=== PATIENT | male | born 1965 | race African-American/Black ===

== ENCOUNTER 2019-02-10 15:31 | Inpatient (IN) | payer OTHER ==
[~2019-02-10] VITALS: Ht 190.5 cm; Wt 121.2 kg
--- NOTE | ~2019-02-10 | EMS ---
[address] [address] EMS Patient Care Report Name: VERNON GARCIA Room #: REG MENDY Jackson#: [id number] Admission: 02/10/19 Attend Phys: Discharge: Date of : 69 Report #: [id number] THIS REPORT FOR: //name// Report Transmitted: 02/10/2019 15:31 EMS Care Summary [place], [place]/[facility] Incident [id number] @ 02/10/2019 14:55 Incident Location [address] [place] [address] [place] [address] Patient VERNON GARCIA Male, 53 Years 1965 Patient Address [address] [place] [address] [place] [address] Patient History Chronic Obstructive Pulmonary Disease (COPD),Diabetes,Hypertension,Seizures,Stroke/CVA,Depression, Patient Allergies Penicillin allergy,Sulfa,Peanut allergy, Patient Medications Xanax, Nitroglycerin, Warfarin, Atorvastatin, Potassium, Hydrochlorothiazide (Hctz), Seroquel, Chief Complaint CHEST PAIN W/ SOB Disposition Transported [place] Dispatch Reason Chest Pain (Non-Traumatic) Transported To [address] [address] EMS Patient Care Report Name: VERNON GARCIA Room #: REG Cherise.#: [id number] Admission: 02/10/19 Attend Phys: Discharge: Date of : 69 Report #: [id number] UPON ARRIVAL T8 IS ASSISTING PT DOWN STEPS, PT HAS BEEN PUT ON O2. PT ASSISTED TO COT. PT SUDDENLY BEGAN HAVING CHEST PAIN WITH TROUBLE BREATHING 30 MIN AGO. PT HAS TAKEN 2 OF HIS OWN NITRO 20 MIN BEFORE CALLING WITH NO EFFECT. PT ADVISED TO GO TO THE CLOSEST ER, PT REFUSES TRANSPORT RESEARCH, PT TRANSPORTED TO [facility]. Initial Vitals @15:23P: 74,BP: 126/86,SpO2: 98, @15:21P: 75,CO: 4,SpO2: 99, @15:10P: 70,SpO2: 99, @15:26P: 76,R: 26,BP: 120/84,Pain: 8/10,GCS: 14,CO: 2,SpO2: 97,Revised Trauma: 12, @15:14P: 71,SpO2: 99, @15:16P: 74, @15:12P: 78,R: 26,BP: 117/73,Pain: 9/10,GCS: 15,CO: 0,SpO2: 98,Revised Trauma: 12,AL Suspected: true @PTAP: 80,BP: 124/80,GCS: 15,SpO2: 98, Assessments @15:10MENTAL:Person Oriented,Time Oriented,Place Oriented,Event Oriented,SKIN:Diaphoresis,HEENT:Head/Face: No Abnormalities,LUNG SOUNDS:General: Nausea,Left Upper: No Abnormalities,Right Upper: No Abnormalities,Left Lower: No Abnormalities,Right Lower: No Abnormalities,ABDOMEN:General: Nausea,Left Upper: No Abnormalities,Right Upper: No Abnormalities,Left Lower: No Abnormalities,Right Lower: No Abnormalities,PELVIS//GI:EXTREMITIES:Left Arm: No Abnormalities,Right Arm: No Abnormalities,Left Leg: No Abnormalities,Right Leg: No Abnormalities,PULSE:Radial: 2+ Normal,NEURO:No Abnormalities, Impression Chest Pain / Discomfort Procedures @15:2112-Lead ECGResponse: UnchangedSucceeded@15:1612-Lead ECGResponse: UnchangedSucceeded@15:1412-Lead ECGResponse: UnchangedFailed@PTAOxygen FlowRate: 4 Device: Nasal Cannula (NC) Response: UnchangedSucceeded@15:14Saline Lock 10cc (20 ga) Site: Hand-RightResponse: UnchangedSucceeded@15:13Aspirin - 324 Milligrams (mg) - OralResponse: Unchanged@15:22Nitrostat - 0.4 Milligrams (mg) - SublingualResponse: Unchanged@15:10ALS AssessmentResponse: UnchangedSucceeded Timeline SR ACCOUNT EXECUTIVE,Oxygen FlowRate: 4 Device: Nasal Cannula (NC) Response: UnchangedSucceeded, SR ACCOUNT EXECUTIVE,BP: 124/80 M,PULSE: 80,RR: R,SPO2: 98 Ox,ETCO2: ,BG: ,PAIN: ,GCS: 15, 14:54,Call Received 14:54,Dispatch Notified [address] [address] EMS Patient Care Report Name: VERNON GARCIA CISNEROS Room #: REG MENDY Jackson#: [id number] Admission: 02/10/19 Attend Phys: Discharge: Date of : 69 Report #: [id number] 14:55,Dispatched 14:56,En Route 15:01,On Scene 15:04,At Patient 15:10,ALS Assessment,Response: UnchangedSucceeded, 15:10,BP: / M,PULSE: 70,RR: R,SPO2: 99 Ox,ETCO2: ,BG: ,PAIN: ,GCS: , 15:12,BP: 117/73 M,PULSE: 78,RR: 26 R,SPO2: 98 Ox,ETCO2: ,BG: ,PAIN: 9,GCS: 15, 15:13,Aspirin - 324 Milligrams (mg) - Oral,Response: Unchanged 15:14,12-Lead ECG,Response: UnchangedFailed, 15:14,BP: / M,PULSE: 71,RR: R,SPO2: 99 Ox,ETCO2: ,BG: ,PAIN: ,GCS: , 15:14,Saline Lock 10cc 20 ga Site: Hand-Right,Response: UnchangedSucceeded, 15:16,12-Lead ECG,Response: UnchangedSucceeded, 15:16,BP: / M,PULSE: 74,RR: R,SPO2: Ox,ETCO2: ,BG: ,PAIN: ,GCS: , 15:18,Depart Scene 15:21,12-Lead ECG,Response: UnchangedSucceeded, 15:21,BP: / M,PULSE: 75,RR: R,SPO2: 99 Ox,ETCO2: ,BG: ,PAIN: ,GCS: , 15:22,Nitrostat - 0.4 Milligrams (mg) - Sublingual,Response: Unchanged 15:23,BP: 126/86 M,PULSE: 74,RR: R,SPO2: 98 Ox,ETCO2: ,BG: ,PAIN: ,GCS: , 15:26,BP: 120/84 M,PULSE: 76,RR: 26 R,SPO2: 97 Ox,ETCO2: ,BG: ,PAIN: 8,GCS: 14, 15:27,At Destination 15:51,Call Closed Disclaimer v1.1 Copyright 2019 [employer] This EMS Care Summary contains data elements from the applicable legal record (which may be displayed differently). It is designed to provide pertinent information for the following purposes: continuity of care, clinical quality, and state data reporting. The complete legal record is available to ED staff and administrators of the receiving hospital in [facility]'s Patient Tracker. All data is provided "as is."
[~2019-02-10 15:31] MED LIST: ADVAIR HFA 45MC1 AER INH; ALBUTEROL INH; ALPRAZOLAM; ALPRAZOLAM2 MG PO; ASPIR 8181 MG PO; ASPIRIN EC81 M1 PO; ASPIRIN325 PO; BACTRIM DS TAB1 EACH PO; CARAFATE 11 GM/10 M1 PO; CARBAMAZEPINE200 M3 PO; CLEOCIN HCL150 MG PO; CLEOCIN HCL300 MG PO; COLACE 100 MG100 MG PO; COUMADIN 10MG T10 M1 PO; COUMADIN 1MG TAB1 M1; COUMADIN 3 MG TA3 M1 PO; COUMADIN 3 MG TA3 MG PO; COUMADIN 5 MG TA5 M1 PO; COUMADIN7.5 MG PO; DOXYCYCLINE 10100 MG PO; FENTANYL PA50 MCG/HR TRANSDERM; FLEXERIL PO; HCTZ; HYDROCHLOROTHIA25 M2 PO; HYDROCODON-ACE1 EAC7 PO; KLOR-CON 1010 MEQ PO; LIPITOR10 MG PO; LORTAB; MEDROLDOSEPACK PO; METFORMIN HCL500 MG PO; METOPROLOL SUCC25 M1 PO; NEXIUM40 M2 PO; NEXIUM40 MG PO; NITROGLYCERIN0.4 MG SL; NITROSTAT0.3 MG SL; NORCO 5-325 TA1 EACH PO; OXYCODONE HCL 55 MG PO; OXYCODONE HCL E15 MG PO; OXYCODONE HCL10 MG PO; OXYCODONE HCL15 MG PO; OXYCONTIN10 M1 PO; OXYCONTIN20 M1 PO; PERCOCET 5-3251 EACH PO; PERCOCET 7.5-31 EACH PO; PERCOCET PO; PRILOSEC 20 MG20 MG PO; PROCTOCREAM-HC30 G1 RC; PROCTOFOAM-HC F10 GM RC; PROMETHAZINE-C120 ML PO; PROTONIX PO; PROTONIX40 M1 PO; PROTONIX40 M4 PO; REMERON15 MG PO; RESCUE INHALER INH; ROXICODONE30 MG PO; SEROQUEL 100 M100 MG PO; SEROQUEL 50 MG50 M1 PO; SEROQUEL 50 MG50 MG PO; SEROQUEL XR400 M1 PO; TEGRETOL XR200 MG PO; ULTRAM50 MG PO; VOLTAREN GEL 1100 G2 TOP; XANAX XR2 MG PO; XANAX1 MG PO; XARELTO20 MG PO; ZOFRAN 4 MG ORAL4 MG PO; ZOFRAN ODT4 MG DISSOLVE; ZOFRAN4 MG PO; ZPAK PO
[2019-02-10 15:32] VITALS: BP 120/83
[2019-02-10 15:54] LABS: MCV 89.7 fL (80.0-100.0); WBC 4.7 thou/uL (4.0-11.0)
[2019-02-10 15:55] LABS: ABSOLUTE NEUTROPHILS 1.9 thou/uL (1.4-8.2); BASOPHILS 0.6 % (0.0-2.0); EOSINOPHILS 2.1 % (0.0-3.0); HEMATOCRIT 46.9 % (42.0-52.0); HEMOGLOBIN 15.4 gm/dL (14.0-18.0); LYMPHOCYTES 48.6 % (24.0-44.0); MCH 29.6 pg (26.0-34.0); MCHC 32.9 g/dL (28.0-37.0); MONOCYTES 9.3 % (1.0-8.0); PLATELET COUNT 282 thou/uL (150-400); POLYS 39.4 % (36.0-66.0); RBC 5.23 mil/uL (4.50-6.00); RDW 14.6 % (10.5-14.5)
[2019-02-10 16:22] LABS: ANION GAP 9 mmol/L (7-16); BUN 12 mg/dL (7-18); CALCIUM 9.1 mg/dL (8.5-10.1); CHLORIDE 101 mmol/L (98-107); CO2 26 mmol/L (21-32); CREATININE 0.9 mg/dL (0.7-1.3); GLUCOSE 100 mg/dL (74-106); POTASSIUM 3.8 mmol/L (3.5-5.1); SODIUM 136 mmol/L (136-145)
[2019-02-10 16:26] LABS: APTT 29.9 Seconds (24.5-32.8); INR 1.4; PROTIME 14.7 Seconds (9.3-11.4)
[2019-02-10 16:33] LABS: ALBUMIN 3.8 g/dL (3.4-5.0); DIRECT BILIRUBIN 0.2 mg/dL (<0.1-0.3); LIPASE 195 U/L (73-393); SGOT 18 U/L (15-37); SGPT 26 U/L (30-65); TOTAL BILIRUBIN 0.4 mg/dL (<0.1-1.0); TOTAL PROTEIN 7.3 g/dL (6.4-8.2); TROPONIN-I <0.06 ng/mL (<0.06)
[2019-02-10 17:37] VITALS: BP 122/91
[2019-02-10 18:11] LABS: CHOLESTEROL 79 mg/dL (<200); HDL CHOLESTEROL 43 mg/dL (>40); LDL CHOLESTEROL 24 mg/dL (<100); TC:HDL 1.8 Ratio (Not establshd); TRIGLYCERIDE 60 mg/dL (<150); VLDL 12 mg/dL (<40)
[2019-02-10 18:43] VITALS: BP 122/91
[2019-02-10 19:45] VITALS: BP 125/71
[2019-02-10 20:00] VITALS: BP 135/89
[2019-02-10] MEDS ORDERED: LIPITOR 20 MG T20 M1 PO (22:00)
[2019-02-10] MEDS ORDERED: SLOW FE142 MG PO (22:00)
[2019-02-10] MEDS ORDERED: DESYREL150 MG PO (22:14)
[2019-02-11] VITALS (7 sets, daily range): BP systolic 112–138; BP diastolic 70–79
--- NOTE | 2019-02-11 08:17 | EKG ---
[address] [email or web address] [address] ELECTROCARDIOGRAM REPORT Name: VERNON GARCIA Room #: 211-P ADM IN M.R.#: [id number] Admission: 02/10/19 Attend Phys: Emily Chandler Discharge: Date of : 69 Report #: [id number] THIS REPORT FOR: //name// [facility] ED Test Date: 2019-02-10 Test Time: 15:32:06 Pat Name: VERNON GARCIA Department: Room: 211 Gender: M Head Of Data: KIAN : 1965 Requested By: Order Number: [id number] MD: Khurram Corona Measurements Intervals [place] Rate: 75 P: 52 WV: 168 QRS: 55 QRSD: 88 T: 30 QT: 362 QTc: 405 Interpretive Statements Sinus rhythm Early repolarization Compared to ECG 10/15/2013 17:44:13 No significant change was found Electronically Signed On 02-11-2019 8:17:03 CDT by Khurram Corona [email or web address] <ELECTRONICALLY SIGNED> By: Khurram Corona MD, [facility] 02/11/19 0817 1532 1532 Khurram Corona MD, FACC /EPI
[2019-02-11 09:55] LABS: AMP/METHAMP Negative (Negative); BARBITURATES Negative (Negative); BENZODIAZEPINES POSITIVE (Negative); COCAINE Negative (Negative); METHADONE Negative (Negative); OPIATES POSITIVE (Negative); PCP Negative (Negative)
[2019-02-12 04:04] VITALS: BP 141/82
[2019-02-12 06:12] LABS: INR 1.5; PROTIME 15.7 Seconds (9.3-11.4)
[2019-02-12 08:05] VITALS: BP 136/76
[2019-02-12 12:24] VITALS: BP 124/75
[2019-02-13 04:55] VITALS: BP 123/67
[2019-02-13 08:01] VITALS: BP 140/73
[2019-02-13 12:05] VITALS: BP 133/70
--- NOTE | 2019-02-13 16:30 | 2DMMODE ---
[facility] [address] [place] [address] 2 D/M-MODE ECHOCARDIOGRAM Name: VERNON GARCIA Room #: 211-P [facility] IN .R.#: [id number] Admission: 02/10/19 Attend Phys: Emily Rey Discharge: Date of : 69 Report #: [id number] THIS REPORT FOR: //name// APPROVED REPORT Study performed: 02/13/2019 15:28:19 EXAM: Comprehensive 2D, Doppler, and color-flow Echocardiogram Patient Location: Echo lab Status: routine BSA: 2.48 HR: 75 bpm BP: 133/70 mmHg Rhythm: NSR Other Information Study Quality: Good Indications Diabetes CAD Chest Pain Hypertension/HDD 2D Dimensions RVDd: 40.68 mm IVSd: 9.60 (7-11mm) LVOT Diam: 21.87 (18-24mm) LVDd: 51.23 mm PWd: 10.16 (7-11mm) Ascending Ao: 30.70 (22-36mm) LVDs: 26.32 (25-40mm) Aortic Root: 31.39 mm IVC: 13.00 mm Volumes Left Atrial Volume (Systole) Single Plane 4CH: 85.47 mL Single Plane 2CH: 49.91 mL LA ESV Index: 29.00 mL/m2 Aortic Valve AoV Peak Jd.: 1.94 m/s AO Peak Gr.: 15.00 mmHg LVOT Max P.00 mmHg LVOT Max V: 1.32 m/s JOSE Vmax: 2.57 cm2 Mitral Valve [facility] [address] [place] [address] 2 D/M-MODE ECHOCARDIOGRAM Name: RADHAVERNON CISNEROS Room #: 211-P [facility] IN .R.#: [id number] Admission: 02/10/19 Attend Phys: Emily Rey Discharge: Date of : 69 Report #: [id number] E/A Ratio: 1.0 MV Decel. Time: 190.35 ms MV E Max Jd.: 0.89 m/s MV A Jd.: 0.87 m/s MV PHT: 55.20 ms IVRT: 78.43 ms Pulmonary Valve PV Peak Jd.: 1.45 m/s PV Peak Gr.: 8.48 mmHg Pulmonary Vein P Vein S: 0.86 m/s P Vein A: 0.28 m/s P Vein D: 0.58 m/s P Vein A Dur.: 115.3 msec P Vein S/D Ratio: 1.48 Tricuspid Valve TR Peak Jd.: 2.21 m/s TR Peak Gr.: 19.47 mmHg PA Pressure: 24.00 mmHg Left Ventricle The left ventricle is normal size. There is normal LV segmental wall motion. There is normal left ventricular wall thickness. Left ventricular systolic function is normal. The left ventricular ejection fraction is within the normal range. LVEF is 60-65%. Right Ventricle The right ventricle is normal size. The right ventricular systolic function is normal. Atria The left atrium size is normal. The right atrium size is normal. Aortic Valve The aortic valve is normal in structure. No aortic regurgitation is present. There is no aortic valvular stenosis. Mitral Valve The mitral valve is normal in structure. There is no mitral valve regurgitation noted. No evidence of mitral valve stenosis. Tricuspid Valve The tricuspid valve is normal in structure. There is trace tricuspid regurgitation. Estimated PAP 24 mmHg. There is no pulmonary hypertension. [facility] [place] [address] 2 D/M-MODE ECHOCARDIOGRAM Name: VERNON GARCIA Room #: 211-P ADM IN M.R.#: [id number] Admission: 02/10/19 Attend Phys: Emily Rey Discharge: Date of : 69 Report #: [id number] Pulmonic Valve The pulmonary valve is normal in structure. There is no pulmonic valvular regurgitation. Great Vessels The aortic root is normal in size. IVC is normal in size and collapses >50% with inspiration. Pericardium There is no pericardial effusion. <Conclusion> The left ventricle is normal size. There is normal left ventricular wall thickness. Left ventricular systolic function is normal. The right ventricle is normal size. The left atrium size is normal. The aortic valve is normal in structure. There is no mitral valve regurgitation noted. There is trace tricuspid regurgitation. Estimated PAP 24 mmHg. <ELECTRONICALLY SIGNED> By: Ken Hollins MD 02/13/191628 28 28 Ken Hollins MD /INF
[2019-02-13 17:05] VITALS: BP 132/76
[2019-02-13 17:32] LABS: INR 1.4; PROTIME 14.6 Seconds (9.3-11.4)
[2019-02-14 05:33] LABS: HEMATOCRIT 44.7 % (42.0-52.0); HEMOGLOBIN 14.7 gm/dL (14.0-18.0); MCH 29.8 pg (26.0-34.0); MCHC 32.8 g/dL (28.0-37.0); MCV 90.9 fL (80.0-100.0); RBC 4.92 mil/uL (4.50-6.00); RDW 14.4 % (10.5-14.5)
[2019-02-14 05:41] LABS: INR 1.3
[2019-02-14 06:02] LABS: CALCIUM 8.9 mg/dL (8.5-10.1); CREATININE 0.9 mg/dL (0.7-1.3); MAGNESIUM 1.9 mg/dL (1.8-2.4); POTASSIUM 4.3 mmol/L (3.5-5.1)
[2019-02-14 08:16] VITALS: BP 126/66
[2019-02-14 16:46] VITALS: BP 138/94
--- NOTE | 2019-02-14 16:57 | O ---
[facility] [place] [address] OPERATIVE REPORT Name: VERNON GARCIA Room #: 211-P ADM IN M.R.#: [id number] Admission: 02/10/19 Attend Phys: Emily Chandler Discharge: Date of : 69 Report #: [id number] THIS REPORT FOR: //name// CC: FAM physician/PCP Emily Chandler DATE OF SERVICE: 02/13/2019 SURGEON: Fly West M.D. PREOPERATIVE DIAGNOSIS: Sore throat. POSTOPERATIVE DIAGNOSIS: Sore throat. OPERATION PERFORMED: Flexible nasopharyngoscopy. INDICATIONS: The patient is a 53-year-old male admitted on 02/10/2019 with atypical chest pain. Since admission, he has developed a sore throat and some swelling in his neck. I have been consulted to see him. DESCRIPTION OF PROCEDURE: In the patient's hospital room after consent, topical anesthesia was achieved with 0.25% Ramirez-Synephrine nasal spray with 4% topical lidocaine. Flexible nasopharyngoscopy was undertaken with the nasopharyngoscope. This demonstrated a deviated septum to the right. There have been previous trauma on the left maxilla and orbit. There was a polyp protruding from the maxillary sinus into the nasal cavity. It appeared to be a benign polyp. Scope was then advanced. Examination was made of the nasopharynx, oropharynx, hypopharynx and larynx. There was no edema or swelling in the airway. Vocal cords were mobile. Epiglottis was normal. The base of tongue did not show any mass. There was no other mucosal irregularity. The scope was then removed. The patient tolerated the procedure well. There were no complications. Blood loss was none. The patient was returned to his healthcare team. <ELECTRONICALLY SIGNED> By: Fly West MD 02/14/19 1657 1332 1341 Fly West MD /nt
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
[2019-02-14 20:56] VITALS: BP 133/51; BP 135/78
[2019-02-15 04:55] VITALS: BP 129/65
[2019-02-15 05:56] LABS: PROTIME 25.2 Seconds (9.3-11.4)
[2019-02-15 06:28] LABS: INR 2.4
[2019-02-15 08:24] VITALS: BP 151/86
[2019-02-15 11:35] VITALS: BP 142/72
[2019-02-15 11:47] VITALS: BP 142/72
[2019-02-15] MEDS ORDERED: PROBIOTIC1 EAC7 PO (15:51)
[2019-02-15] MEDS ORDERED: CLINDAMYCIN HC300 MG PO (15:51)
[2019-02-15] MEDS ORDERED: MEDROLDOSEPACK PO (15:58)
[2019-02-15] MEDS ORDERED: ROXICODONE5 MG PO (16:11)
--- NOTE | 2019-02-15 17:06 | PATH ---
[facility] [address] [place] [address] PATHOLOGY RPT PROCEDURE Name: JAMEL PROCTOR Room #: 211-P ADM IN M.R.#: [id number] Admission: 02/10/19 Date of : 69 Discharge: Report #: [id number] Path Case #: [id number] [facility] Accession Number: [id number] . 01 Material submitted: . stomach - GASTRIC BX . 01 Clinical history: . Pre-OP DX: Nausea, vomiting, odynophagia Post-OP DX: Same . 02 Diagnosis: Gastric mucosa, gastric, endoscopic biopsy: - Helicobacter pylori-induced mild active gastritis. - Negative for intestinal metaplasia or atrophy. - Moderate number of organisms present on the properly-controlled immunohistochemical stain. . (IUV:mml; 02/15/2019) QLM 02/15/2019 1316 Local . 02 Electronically signed: . Dayanna Chavez MD, Pathologist NPI- [id number] . 01 Gross description: . Received in formalin labeled "Jamel Proctor, gastric BX," is a single segment of hinojosa soft tissue measuring 0.6 cm in maximum dimension. The specimen is entirely submitted in cassette A1. (TSD; 02/14/2019) TOB/TOB 02/14/20198 Local . 02 Pathologist provided ICD-10: K29.60, B96.81 . 02 CPT . 121295, H68271 Specimen Comment: A courtesy copy of this report has been sent to Specimen Comment: [phone], . Specimen Comment: Report sent to / DR MURPHY Performed at: [address] [id number] MD Forrest Harris MD Phone: [phone] Performed at: [address] [id number] [address] [address] PATHOLOGY RPT PROCEDURE Name: JAMEL PROCTOR CISNEROS Room #: 211-P [facility] IN M.R.#: [id number] Admission: 02/10/19 Date of : 69 Discharge: Report #: [id number] Path Case #: [id number] MD Dayanna Chavez MD Phone: [phone]
[2019-02-15 17:29] VITALS: BP 124/82
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
== END 2019-02-15 18:06 | disposition home or self-care (01) | DRG 392 ==
LOC: ER 15:31 → EROBS 17:30 → 2N 17:30 → ENTRNSPT 02-15 17:40 → 2N 02-15 18:06
PROVIDERS: Emergency Medicine; Internal Medicine; Nurse Practitioner; ADMIT Hospitalist
PROC: 0D568ZZ Destruction of Stomach, Via Natural or Artificial Opening Endoscopic (ICD-10-PCS; principal; 2019-02-10)
PROC: 0DB68ZX Excision of Stomach, Via Natural or Artificial Opening Endoscopic, Diagnostic (ICD-10-PCS; principal; 2019-02-10)
PROC: 0CJY8ZZ Inspection of Mouth and Throat, Via Natural or Artificial Opening Endoscopic (ICD-10-PCS; 2019-02-13)
DX: K31.819 Angiodysplasia of stomach and duodenum without bleeding (principal); I50.22 Chronic systolic (congestive) heart failure; L03.221 Cellulitis of neck; I25.10 Atherosclerotic heart disease of native coronary artery without angina pectoris; F41.9 Anxiety disorder, unspecified; E11.9 Type 2 diabetes mellitus without complications; F31.9 Bipolar disorder, unspecified; J02.9 Acute pharyngitis, unspecified; F12.20 Cannabis dependence, uncomplicated; J33.9 Nasal polyp, unspecified; F17.210 Nicotine dependence, cigarettes, uncomplicated; R13.10 Dysphagia, unspecified; G40.909 Epilepsy, unspecified, not intractable, without status epilepticus; I11.0 Hypertensive heart disease with heart failure; F20.9 Schizophrenia, unspecified; E78.5 Hyperlipidemia, unspecified; G89.29 Other chronic pain; M54.9 Dorsalgia, unspecified; R07.89 Other chest pain; N45.1 Epididymitis; D18.1 Lymphangioma, any site; Z23 Encounter for immunization; Z95.5 Presence of coronary angioplasty implant and graft; I25.2 Old myocardial infarction; Z88.6 Allergy status to analgesic agent; Z88.1 Allergy status to other antibiotic agents; Z88.8 Allergy status to other drugs, medicaments and biological substances; Z79.891 Long term (current) use of opiate analgesic; Z79.82 Long term (current) use of aspirin; Z79.899 Other long term (current) drug therapy; Z87.11 Personal history of peptic ulcer disease; Z79.01 Long term (current) use of anticoagulants
CPT/HCPCS: 10081; 62110; 62900; 70005

== ENCOUNTER 2019-04-21 14:40 | Inpatient (IN) | payer OTHER ==
[~2019-04-21] VITALS: Ht 190.5 cm; Wt 126.1 kg
[~2019-04-21 14:40] MED LIST changes: +CLINDAMYCIN HC300 MG PO; +DESYREL150 MG PO; +LIPITOR 20 MG T20 M1 PO; +PROBIOTIC1 EAC7 PO; +ROXICODONE5 MG PO; +SLOW FE142 MG PO
[2019-04-21 14:56] LABS: HEMATOCRIT 40.3 % (42.0-52.0); HEMOGLOBIN 13.2 gm/dL (14.0-18.0); MCH 29.8 pg (26.0-34.0); MCHC 32.7 g/dL (28.0-37.0); MCV 91.2 fL (80.0-100.0); RBC 4.42 mil/uL (4.50-6.00); RDW 14.5 % (10.5-14.5); WBC 3.9 thou/uL (4.0-11.0)
[2019-04-21 15:06] LABS: ANION GAP 8 mmol/L (7-16); BUN 13 mg/dL (7-18); CALCIUM 8.6 mg/dL (8.5-10.1); CHLORIDE 107 mmol/L (98-107); CO2 26 mmol/L (21-32); GLUCOSE 163 mg/dL (74-106); POTASSIUM 3.6 mmol/L (3.5-5.1); SODIUM 141 mmol/L (136-145)
[2019-04-21 15:10] LABS: PHOSPHORUS 1.8 mg/dL (2.5-4.9)
[2019-04-21 15:11] LABS: ALBUMIN 3.5 g/dL (3.4-5.0); DIRECT BILIRUBIN 0.2 mg/dL (<0.1-0.2); TOTAL BILIRUBIN 0.6 mg/dL (<0.1-1.0); TOTAL PROTEIN 6.2 g/dL (6.4-8.2)
[2019-04-21 15:13] LABS: APTT 29.4 Seconds (24.5-32.8); INR 1.3; PROTIME 12.9 Seconds (9.3-11.4)
[2019-04-21 15:13] LABS: TROPONIN-I <0.06 ng/mL (<0.06)
[2019-04-21 15:14] LABS: SALICYLATE < 2.8 mg/dL (2.8-20.0)
[2019-04-21 18:54] VITALS: BP 149/52
[2019-04-21 19:08] VITALS: BP 150/69
[2019-04-21 19:15] VITALS: BP 123/79
[2019-04-22 07:42] VITALS: BP 120/67
--- NOTE | 2019-04-22 07:50 | NUR ---
TOOK OVER PT CARE AT APPROX 2150.PT ALERT.PT CONSTANTLY REQUESTING FOR FOOD,EDUCATION GIVEN.PT NOT COMPLIANT WITH DM.GOT A CALL FROM JAYA POISON CONTROL,INFORMED HER OF ALL THE TESTS DONE SO FAR ON PT.SHE REQUESTED THAT WE CHECK PT'S CARBAZEPINE AND TEGRETOL LEVEL,VICE PRESIDENT CONSULTING SERVICES ON DUTY NOTIFIED.ORDER PUT IN FOR LAB THIS AM.PT RESTED WELL ALL NIGHT.REPORT TO AM NURSE.
--- NOTE | 2019-04-22 13:50 | NUR ---
ASSUMED PT CARE APPX 1030. AXOX4. RECEIVED AT REPORT FROM LEAVING RN THAT HAS D/C HIM FOR HOME. HOWEVER, PT VERBALIZED EARLIER THAT HE WISHES NOT TO SEE ANYMORE. PT ALSO SAID THAT HE DOES NOT WANT TO LEAVE UNLESS HE SEES THE PHYSICIAN. FRED GARCIA FROM [facility] HERE TO SEE PT AND PT FINALYL AGREED TO D/C. ALL PAPERS SINGED AND PT NOW WAITING FOR CAB. NO S/S ACUTE DISTRESS NOTED OR REPORTED AT THIS TIME. WILL CONT TO MONITOR ANY CHANGES IN CONDITION PT DEPARTS THE FLOOR.
--- NOTE | 2019-04-22 16:43 | NUR ---
PT REQUESTING CAB RIDE HOME, VOUCHER PROVIDED & PT WAS ESCORTED TO SECURITY TO WAIT FOR THE CAB EARLIER THIS AFTERNOON.
--- NOTE | 2019-04-25 12:47 | EKG ---
[address] [address] ELECTROCARDIOGRAM REPORT Name: RADHAVERNON CISNEROS Room #: 445-P [facility] IN M.R.#: [id number] Admission: 04/21/19 Attend Phys: Emily Chandler Discharge: 04/22/19 Date of : 69 Report #: [id number] THIS REPORT FOR: //name// [facility] ED Test Date: 2019-04-21 Test Time: 14:55:03 Pat Name: VERNON GARCIA Department: Room: [facility] Gender: M Fireworks Display Specialist: kwame : 1965 Requested By: Murali Julian Order Number: [id number] MD: Fahad Menezes Measurements Intervals [place] Rate: 78 P: 37 [place]: 174 QRS: 4 QRSD: 90 T: 1 QT: 367 QTc: 419 Interpretive Statements Sinus rhythm Probable left atrial enlargement Left ventricular hypertrophy Compared to ECG 02/10/2019 15:32:06 Left ventricular hypertrophy now present Early repolarization no longer present Electronically Signed On 04-25-2019 12:47:28 BUILDING MAINTENANCE TECHNICIAN by Fahad Menezes [email or web address] <ELECTRONICALLY SIGNED> By: Fahad Menezes MD 04/25/19 1247 1455 1455 Fahad Menezes MD /EPI
== END 2019-04-22 14:10 | disposition home or self-care (01) | DRG 918 ==
LOC: ER 14:40 → EROBS 17:36 → 4S 19:01 → ENTRNSPT 04-22 14:00 → EDTRNSPTSTS 04-22 14:03 → 4S 04-22 14:10
PROVIDERS: Emergency Medicine; ADMIT Hospitalist
DX: T44.7X1A Poisoning by beta-adrenoreceptor antagonists, accidental (unintentional), initial encounter (principal); I50.22 Chronic systolic (congestive) heart failure; I25.10 Atherosclerotic heart disease of native coronary artery without angina pectoris; F41.9 Anxiety disorder, unspecified; E11.9 Type 2 diabetes mellitus without complications; F20.9 Schizophrenia, unspecified; F31.9 Bipolar disorder, unspecified; I11.0 Hypertensive heart disease with heart failure; Z95.5 Presence of coronary angioplasty implant and graft; I25.2 Old myocardial infarction; Z79.891 Long term (current) use of opiate analgesic; Z86.711 Personal history of pulmonary embolism; Z79.899 Other long term (current) drug therapy; Z79.82 Long term (current) use of aspirin; Z79.01 Long term (current) use of anticoagulants; Z79.84 Long term (current) use of oral hypoglycemic drugs; Z88.8 Allergy status to other drugs, medicaments and biological substances; Z88.6 Allergy status to analgesic agent; Z88.0 Allergy status to penicillin; Z91.010 Allergy to peanuts; Z88.2 Allergy status to sulfonamides; Z91.048 Other nonmedicinal substance allergy status; Z82.49 Family history of ischemic heart disease and other diseases of the circulatory system; Z80.8 Family history of malignant neoplasm of other organs or systems; Z82.3 Family history of stroke; Z84.1 Family history of disorders of kidney and ureter; Z86.69 Personal history of other diseases of the nervous system and sense organs; Y92.89 Other specified places as the place of occurrence of the external cause
CPT/HCPCS: 10100

== ENCOUNTER 2019-05-15 22:36 | Inpatient (IN) | payer OTHER ==
[~2019-05-15] VITALS: Ht 190.5 cm; Wt 123.8 kg
[2019-05-15 23:32] LABS: ABSOLUTE NEUTROPHILS 2.2 thou/uL (1.4-8.2); BASOPHILS 0.6 % (0.0-2.0); EOSINOPHILS 1.6 % (0.0-3.0); HEMATOCRIT 43.1 % (42.0-52.0); HEMOGLOBIN 14.1 gm/dL (14.0-18.0); LYMPHOCYTES 38.1 % (24.0-44.0); MCH 29.8 pg (26.0-34.0); MCHC 32.8 g/dL (28.0-37.0); MCV 91.1 fL (80.0-100.0); MONOCYTES 11.1 % (1.0-8.0); PLATELET COUNT 298 thou/uL (150-400); POLYS 48.6 % (36.0-66.0); RBC 4.72 mil/uL (4.50-6.00); RDW 14.1 % (10.5-14.5); WBC 4.6 thou/uL (4.0-11.0)
[2019-05-15 23:35] LABS: ANION GAP 10 mmol/L (7-16); BUN 18 mg/dL (7-18); CALCIUM 8.9 mg/dL (8.5-10.1); CHLORIDE 103 mmol/L (98-107); CO2 28 mmol/L (21-32); GLUCOSE 108 mg/dL (74-106); POTASSIUM 3.3 mmol/L (3.5-5.1); SODIUM 141 mmol/L (136-145)
[2019-05-15 23:38] LABS: APTT 29.9 Seconds (24.5-32.8); INR 1.2
[2019-05-15 23:46] LABS: ALBUMIN 4.2 g/dL (3.4-5.0); LIPASE 116 U/L (73-393); SGOT 47 U/L (15-37); SGPT 62 U/L (30-65); TOTAL BILIRUBIN 0.8 mg/dL (<0.1-1.0); TOTAL PROTEIN 7.9 g/dL (6.4-8.2); TROPONIN-I <0.06 ng/mL (<0.06)
[2019-05-16 00:47] VITALS: BP 130/74
[2019-05-16 01:10] VITALS: BP 146/81
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
[2019-05-16 05:27] LABS: HEMATOCRIT 43.7 % (42.0-52.0); HEMOGLOBIN 14.1 gm/dL (14.0-18.0); MCH 29.7 pg (26.0-34.0); MCHC 32.3 g/dL (28.0-37.0); MCV 91.9 fL (80.0-100.0); RBC 4.76 mil/uL (4.50-6.00); RDW 14.7 % (10.5-14.5); WBC 4.3 thou/uL (4.0-11.0)
[2019-05-16 05:50] LABS: CALCIUM 8.8 mg/dL (8.5-10.1); CREATININE 0.8 mg/dL (0.7-1.3)
[2019-05-16 06:00] LABS: CHOLESTEROL 106 mg/dL (<200); HDL CHOLESTEROL 41 mg/dL (>40); LDL CHOLESTEROL 57 mg/dL (<100); TC:HDL 2.6 Ratio (Not establshd); TRIGLYCERIDE 44 mg/dL (<150); VLDL 9 mg/dL (<40)
[2019-05-16 06:08] LABS: POTASSIUM 4.3 mmol/L (3.5-5.1)
[2019-05-16 06:11] LABS: SERUM ASSESSMENT Clear
[2019-05-16 07:05] VITALS: BP 113/66
--- NOTE | 2019-05-16 09:47 | 2DMMODE ---
[facility] [address] [place] [address] 2 D/M-MODE ECHOCARDIOGRAM Name: VERNON GARCIA Room #: 200-I ADM IN ..#: [id number] Admission: 05/15/19 Attend Phys: Tomas Steiner MD Discharge: Date of : 69 Report #: [id number] THIS REPORT FOR: //name// APPROVED REPORT Study performed: 05/16/2019 08:46:29 EXAM: Comprehensive 2D, Doppler, and color-flow Echocardiogram Patient Location: Echo lab Room #: 200 Status: routine BSA: 2.50 HR: 70 bpm BP: 146/81 mmHg Rhythm: NSR Other Information Study Quality: Good Indications COPD CAD Chest Pain Hypertension/HDD 2D Dimensions RVDd: 41.58 mm IVSd: 12.11 (7-11mm) LVOT Diam: 20.10 (18-24mm) LVDd: 45.86 mm PWd: 12.20 (7-11mm) Ascending Ao: 31.86 (22-36mm) LVDs: 29.64 (25-40mm) Aortic Root: 30.80 mm IVC: 14.00 mm Volumes Left Atrial Volume (Systole) Single Plane 4CH: 76.17 mL Single Plane 2CH: 47.77 mL LA ESV Index: 26.00 mL/m2 Aortic Valve AoV Peak Jd.: 1.44 m/s AO Peak Gr.: 8.25 mmHg LVOT Max P.25 mmHg LVOT Max V: 1.25 m/s JOSE Vmax: 2.76 cm2 Mitral Valve [facility] [address] [place] [address] 2 D/M-MODE ECHOCARDIOGRAM Name: RADHAVERNON CISNEROS Room #: 200-I [facility] IN [facility]#: [id number] Admission: 05/15/19 Attend Phys: Tomas Steiner MD Discharge: Date of : 69 Report #: [id number] E/A Ratio: 0.8 MV Decel. Time: 277.20 ms MV E Max Jd.: 0.69 m/s MV A Jd.: 0.86 m/s MV PHT: 80.39 ms IVRT: 119.95 ms Pulmonary Valve PV Peak Jd.: 0.89 m/s PV Peak Gr.: 3.21 mmHg Pulmonary Vein P Vein S: 0.74 m/s P Vein A: 0.41 m/s P Vein D: 0.53 m/s P Vein A Dur.: 124.6 msec P Vein S/D Ratio: 1.40 Left Ventricle The left ventricle is normal size. There is normal LV segmental wall motion. Mild concentric left ventricular hypertrophy. Left ventricular systolic function is normal. The left ventricular ejection fraction is within the normal range. LVEF is 55-60%. Grade I - abnormal relaxation pattern. Right Ventricle The right ventricle is normal size. The right ventricular systolic function is normal. Atria The left atrium size is normal. The right atrium size is normal. Aortic Valve The aortic valve is normal in structure. Trace aortic regurgitation. There is no aortic valvular stenosis. Mitral Valve The mitral valve is normal in structure. Trace mitral regurgitation. No evidence of mitral valve stenosis. Tricuspid Valve The tricuspid valve is normal in structure. There is no tricuspid valve regurgitation noted. Pulmonic Valve The pulmonary valve is normal in structure. There is no pulmonic valvular regurgitation. [facility] [place] [address] 2 D/M-MODE ECHOCARDIOGRAM Name: VERNON GARCIA Room #: 200-I ADM IN M.R.#: [id number] Admission: 05/15/19 Attend Phys: Tomas Steiner MD Discharge: Date of : 69 Report #: [id number] Great Vessels The aortic root is normal in size. IVC is normal in size and collapses >50% with inspiration. Pericardium There is no pericardial effusion. <Conclusion> The left ventricle is normal size. Mild concentric left ventricular hypertrophy. Left ventricular systolic function is normal. Grade I - abnormal relaxation pattern. The right ventricle is normal size. The left atrium size is normal. Trace aortic regurgitation. Trace mitral regurgitation. There is no tricuspid valve regurgitation noted. <ELECTRONICALLY SIGNED> By: Ken Hollins MD 01/945 5 5 Ken Hollins MD /NELIDA
[2019-05-16] MEDS ORDERED: COUMADIN 3 MG TA3 MG PO (10:23)
[2019-05-16] MEDS ORDERED: SEROQUEL 100 M100 M1 PO (10:24)
[2019-05-16 15:25] VITALS: BP 122/78
--- NOTE | 2019-05-16 17:22 | EKG ---
[address] [place] [address] ELECTROCARDIOGRAM REPORT Name: VERNON GARCIA Room #: 200-I ADM IN M.R.#: [id number] Admission: 05/15/19 Attend Phys: Toams Steiner MD Discharge: Date of : 69 Report #: [id number] THIS REPORT FOR: //name// [facility] ED Test Date: 2019-05-15 Test Time: 22:36:05 Pat Name: VERNON GARCIA Department: Room: 200 Gender: M Instructional Writer: YOBANI : 1965 Requested By: Pako Lew Order Number: [id number] MD: Fahad Menezes Measurements Intervals [place] Rate: 99 P: 51 [place]: 167 QRS: 48 QRSD: 89 T: 9 QT: 298 QTc: 383 Interpretive Statements Sinus rhythm Atrial premature complex Left atrial enlargement Compared to ECG 07/21/1992 01:02:00 Electronically Signed On 05-16-2019 17:21:18 DRIVER/SALES WORKERS by Fahad Menezes [email or web address] <ELECTRONICALLY SIGNED> By: Fahad Menezes MD 05/16/19 1721 35 Fahad Menezes MD /NAHOMY
--- NOTE | 2019-05-16 17:24 | EKG ---
[place] [address] [facility] [place] [address] ELECTROCARDIOGRAM REPORT Name: VERNON GARCIA Room #: 200-I ADM IN M.R.#: [id number] Admission: 05/15/19 Attend Phys: Tomas Steiner MD Discharge: Date of : 69 Report #: [id number] THIS REPORT FOR: //name// [facility] Test Date: 2019-05-16 Test Time: 07:10:41 Pat Name: VERNON GARCIA Department: Room: 200 I Gender: M Ash Worker: MINDI : 1965 Requested By: Renae Pope Order Number: [id number] MD: Fahad Menezes Measurements Intervals [place] Rate: 64 P: 2 [place]: 173 QRS: 4 QRSD: 98 T: 0 QT: 415 QTc: 428 Interpretive Statements Sinus rhythm Left ventricular hypertrophy ST elev, probable normal early repol pattern Compared to ECG 07/21/1992 01:02:00 Electronically Signed On 05-16-2019 17:23:45 FLAT LOCK OPERATOR by Fahad Menezes [email or web address] <ELECTRONICALLY SIGNED> By: Fahad Menezes MD 05/16/19 1723 9 9 Fahad Menezes MD /NAHOMY
--- NOTE | 2019-05-16 17:49 | NUR ---
ASSUMED CARE PT SHIFT CHANGE. ASSESSMENTS CHARTED. MEDS GIVEN PER JUN. PT ALERT AND ORIENTED. VSS. C/O CHEST PAIN- MANAGED WITH IV AND PO PAIN MEDS. EGD, ECHO, PT 1 OF STRESS TEST COMPLETED THIS SHIFT--SEE RESULTS. O2 SATS WNL ON ROOM AIR. PT UP SBA TOLERATING WELL. PT UPSET WITH PAIN MANAGEMENT, STATED 4MG MORPHINE NOT EFFECTIVE. PHYSICIAN NOTIFIED. ORDERS RECEIVED. PT SPOKE WITH PATTERN HANGER REGARDING PAIN MANAGEMENT EFFECTIVENESS, PT SEEMED CONTENT WITH CONVERSATION AND CARE PROVIDED. PT CURRENTLY EATING DINNER, DENYING OF CONCERNS AT THIS TIME. WILL CONT TO MONITOR AND FOLLOW POC.
[2019-05-16 20:29] VITALS: BP 116/67
[2019-05-16 23:07] LABS: GLYCOHEMOGLOBIN (HGB A1C) 6.5 % (4.8-5.6)
--- NOTE | 2019-05-17 05:00 | NUR ---
ASSUMED PT CARE AT 1900. PT IS ALERT AND ORIENTED WITH NO SIGN OF DISTRESS NOTED IN PT. PAIN REPORTED BY PATIENT. PRN PAIN MED ADMINISTERED TO PT UPON REQUEST. CALL LIGHT WITHIN REACH. ASSESSMENT COMPLETED AND DOCUMENTED. SCHEDULED MEDS ADMINISTERED TO PT. PT IS NPO FOR STRESS TEST. NO FURTHER NEEDS REQUESTED AT THIS TIME.
[2019-05-17 05:06] VITALS: BP 137/79
[2019-05-17 07:35] VITALS: BP 116/75
[2019-05-17 08:36] LABS: INR 1.1; PROTIME 10.9 Seconds (9.3-11.4)
[2019-05-17] MEDS ORDERED: COUMADIN 5 MG TA5 M1 PO (09:07)
[2019-05-17 10:51] VITALS: BP 124/40
[2019-05-17 12:58] VITALS: BP 124/40
--- NOTE | 2019-05-17 13:26 | NUR ---
PT CARE ASSUMED APPROX 0700. DENIES SOA. REPORTS CHRONIC PAIN 10/10 AT ALL TIMES DESPITE MEDS GIVEN. VSS. STRESS TEST NEGATIVE. PT GIVEN ORDERS TO DISCHARGE. DISCHARGE EDUCATION REVIEWED WITH PT. HE DENIES QUESTIONS OR CONCERNS REGARDING POST HOSPITAL CARE. IV OUT, TELE BOX OFF. PT ESCORTED OUT VIA WHEELCHAIR WITH HOSPITAL PROVIDED CAB VOUCHER.
--- NOTE | 2019-05-17 15:07 | PATH ---
[facility] [place] [address] PATHOLOGY RPT PROCEDURE Name: JAMEL PROCTOR Room #: 200-I DIS IN M.R.#: [id number] Admission: 05/15/19 Date of : 69 Discharge: 05/17/19 Report #: [id number] Path Case #: [id number] [facility] Accession Number: [id number] . 01 Material submitted: . stomach - BIOPSY OF ANTRUM R/O H. PYLORI . 01 Clinical history: . Hematemesis . 02 Diagnosis: Gastric mucosa, antrum, rule out H. pylori, endoscopic biopsy: - Helicobacter pylori-induced mild to moderate active gastritis. - Negative for intestinal metaplasia or atrophy or dysplasia. - Numerous Helicobacter pylori organisms present on a properly controlled immunohistochemical stain. (IUV:enterprise integration architect; 05/17/2019) MBR 05/17/2019 1202 Local . 02 Electronically signed: . Dayanna Chavez MD, Pathologist NPI- [id number] . 01 Gross description: . Received in formalin labeled "Jamel Proctor, BX of antrum, rule out H. pylori," is a single segment of hinojosa soft tissue measuring 0.7 cm in maximum dimension. The specimen is entirely submitted in cassette A1. (TSD; 05/16/2019) TOB/TOB 05/16/20191951 Local . 02 Pathologist provided ICD-10: K29.60, B96.81 . 02 CPT . 815732, X64007 Specimen Comment: A courtesy copy of this report has been sent to [phone] Specimen Comment: [id number] Specimen Comment: Report sent to / DR CHRISTY Specimen Comment: A duplicate report has been generated due to demographic updates. Performed at: [address] [id number] MD Forrest Harris MD Phone: [phone] Performed at: [address] [address] PATHOLOGY RPT PROCEDURE Name: JAMEL PROCTOR Room #: 200-I DIS IN M.R.#: [id number] Admission: 05/15/19 Date of : 69 Discharge: 05/17/19 Report #: [id number] Path Case #: [id number] [address] [place] [address] [id number] MD Dayanna Chavez MD Phone: [phone]
== END 2019-05-17 13:33 | disposition home or self-care (01) | DRG 378 ==
LOC: ER 22:36 → EROBS 23:59 → 2N 23:59 → ER 05-16 00:50 → 2N 05-16 00:50
PROVIDERS: Emergency Medicine; Nurse Practitioner Family; ADMIT Hospitalist
PROC: 0DB68ZX Excision of Stomach, Via Natural or Artificial Opening Endoscopic, Diagnostic (ICD-10-PCS; principal; 2019-05-16)
PROC: 0D758ZZ Dilation of Esophagus, Via Natural or Artificial Opening Endoscopic (ICD-10-PCS; principal; 2019-05-16)
DX: K92.0 Hematemesis (principal); S21.109A Unspecified open wound of unspecified front wall of thorax without penetration into thoracic cavity, initial encounter; R04.2 Hemoptysis; R13.19 Other dysphagia; K74.60 Unspecified cirrhosis of liver; J44.9 Chronic obstructive pulmonary disease, unspecified; I25.10 Atherosclerotic heart disease of native coronary artery without angina pectoris; F10.10 Alcohol abuse, uncomplicated; F12.90 Cannabis use, unspecified, uncomplicated; F41.9 Anxiety disorder, unspecified; Z95.5 Presence of coronary angioplasty implant and graft; I25.2 Old myocardial infarction; Z88.2 Allergy status to sulfonamides; Z88.8 Allergy status to other drugs, medicaments and biological substances; Z88.6 Allergy status to analgesic agent; Z88.1 Allergy status to other antibiotic agents; Z91.018 Allergy to other foods; Z86.711 Personal history of pulmonary embolism; Z86.718 Personal history of other venous thrombosis and embolism; Z79.899 Other long term (current) drug therapy
CPT/HCPCS: 10081; 62110; 62900; 70005

== ENCOUNTER 2019-11-03 14:17 | Emergency (ER) | payer OTHER ==
[~2019-11-03] VITALS: Ht 190.5 cm; Wt 127.0 kg
[~2019-11-03 14:17] MED LIST changes: +SEROQUEL 100 M100 M1 PO
[2019-11-03 16:49] LABS: ABSOLUTE NEUTROPHILS 2.1 thou/uL (1.4-8.2); BASOPHILS 0.8 % (0.0-2.0); HEMOGLOBIN 15.3 gm/dL (14.0-18.0); LYMPHOCYTES 41.1 % (24.0-44.0); MCH 29.9 pg (26.0-34.0); MCHC 33.3 g/dL (28.0-37.0); MCV 89.7 fL (80.0-100.0); MONOCYTES 8.8 % (1.0-8.0); PLATELET COUNT 223 thou/uL (150-400); POLYS 46.3 % (36.0-66.0); RBC 5.13 mil/uL (4.50-6.00); RDW 14.5 % (10.5-14.5); WBC 4.6 thou/uL (4.0-11.0)
[2019-11-03 16:55] LABS: ANION GAP 10 mmol/L (7-16); BUN 15 mg/dL (7-18); CALCIUM 8.9 mg/dL (8.5-10.1); CHLORIDE 99 mmol/L (98-107); CO2 26 mmol/L (21-32); GLUCOSE 104 mg/dL (74-106); POTASSIUM 3.5 mmol/L (3.5-5.1); SODIUM 135 mmol/L (136-145)
[2019-11-03 17:05] LABS: SGOT 17 U/L (15-37); SGPT 29 U/L (30-65); TOTAL BILIRUBIN 0.4 mg/dL (0.2-1.0); TOTAL PROTEIN 7.5 g/dL (6.4-8.2); TROPONIN-I <0.06 ng/mL (<0.06)
[2019-11-03 19:51] VITALS: BP 142/67
--- NOTE | 2019-11-04 08:14 | EKG ---
[facility] [place] [address] [place] [address] ELECTROCARDIOGRAM REPORT Name: VERNON GARCIA Room #: [facility].#: [id number] Admission: 11/03/19 Attend Phys: Discharge: 11/03/19 Date of : 69 Report #: [id number] THIS REPORT FOR: cc: FAM - No family physician/PCP FAM - No family physician/PCP Khurram Corona MD [facility] THIS REPORT FOR: //name// [facility] ED Test Date: 2019-11-03 Test Time: 14:19:37 Pat Name: VERNON GARCIA Department: Room: Gender: [place] Reverse Winder: [facility] : 1965 Requested By: Mando Tomas Order Number: [id number] MD: Khurram Corona Measurements Intervals [place] Rate: 75 P: 16 [place]: 178 QRS: 24 QRSD: 94 T: 13 QT: 372 QTc: 416 Interpretive Statements Sinus rhythm ST elevation suggests early repolarization Compared to ECG 05/16/2019 07:10:41 No significant changes Electronically Signed On 11-04-2019 8:14:19 CDT by Khurram Corona [email or web address] <ELECTRONICALLY SIGNED> By: Khurram Corona MD, FACC 11/04/19 0814 1419 1419 Khurram Corona MD, [facility] /EPI
== END 2019-11-03 19:53 | disposition home or self-care (01) ==
LOC: ER 14:17
PROVIDERS: Emergency Medicine
DX: R07.9 Chest pain, unspecified (principal); R06.02 Shortness of breath; R11.2 Nausea with vomiting, unspecified; R61 Generalized hyperhidrosis; J44.9 Chronic obstructive pulmonary disease, unspecified; I25.2 Old myocardial infarction; Z98.61 Coronary angioplasty status; Z86.718 Personal history of other venous thrombosis and embolism; Z86.711 Personal history of pulmonary embolism; Z79.899 Other long term (current) drug therapy; Z79.01 Long term (current) use of anticoagulants; Z79.82 Long term (current) use of aspirin; Z88.6 Allergy status to analgesic agent; Z88.5 Allergy status to narcotic agent; Z88.8 Allergy status to other drugs, medicaments and biological substances; Z88.1 Allergy status to other antibiotic agents; Z91.010 Allergy to peanuts; Z88.0 Allergy status to penicillin; Z88.2 Allergy status to sulfonamides; Z91.048 Other nonmedicinal substance allergy status

== ENCOUNTER 2019-12-23 11:41 | Inpatient (IN) | payer OTHER ==
[~2019-12-23] VITALS: Ht 190.5 cm; Wt 136.1 kg
[2019-12-23 11:43] VITALS: BP 142/85
[2019-12-23 12:33] LABS: HEMATOCRIT 48.7 % (42.0-52.0); HEMOGLOBIN 16.3 gm/dL (14.0-18.0); MCH 29.7 pg (26.0-34.0); MCHC 33.5 g/dL (28.0-37.0); MCV 88.7 fL (80.0-100.0); PLATELET COUNT 242 thou/uL (150-400); RBC 5.49 mil/uL (4.50-6.00); RDW 14.5 % (10.5-14.5); WBC 6.4 thou/uL (4.0-11.0)
[2019-12-23 12:37] LABS: ANION GAP 10 mmol/L (7-16); BUN 18 mg/dL (7-18); CALCIUM 9.7 mg/dL (8.5-10.1); CHLORIDE 102 mmol/L (98-107); CO2 27 mmol/L (21-32); CREATININE 1.4 mg/dL (0.7-1.3); GLUCOSE 101 mg/dL (74-106); POTASSIUM 3.1 mmol/L (3.5-5.1); PROTIME 10.6 Seconds (9.3-11.4); SODIUM 139 mmol/L (136-145)
[2019-12-23 12:43] LABS: ALBUMIN 4.8 g/dL (3.4-5.0); SALICYLATE < 2.8 mg/dL (2.8-20.0); SGOT 23 U/L (15-37); SGPT 26 U/L (30-65); TOTAL BILIRUBIN 1.1 mg/dL (0.2-1.0); TOTAL PROTEIN 8.9 g/dL (6.4-8.2)
[2019-12-23 12:59] LABS: BE(vivo) 0.8 mmol/L (-2 to +3); HCO3 23.6 mmol/L (22.0-26.0); PCO2 33.1 mmHg (35.0-45.0); pH 7.471 (7.360-7.450); sO2 96.2 % (92.0-98.0)
--- NOTE | 2019-12-23 13:35 | EKG ---
[facility] [place] [address] [place] [address] ELECTROCARDIOGRAM REPORT Name: VERNON GARCIA Room #: PRE M.R.#: [id number] Admission: Attend Phys: Discharge: Date of : 69 Report #: [id number] THIS REPORT FOR: cc: HUE - Eleonora family physician/PCP HUE - [place]on[place] family physician/PCP Fahad Menezes MD ~ THIS REPORT FOR: //name// [facility] ED Test Date: 2019-12-23 Test Time: 12:17:19 Pat Name: VERNON GARCIA Department: Room: Gender: M Post Anesthesia Nurse: [facility] : 1965 Requested By: Zeeshan Victor Order Number: [id number] MD: Fahad Menezes Measurements Intervals [place] Rate: 92 P: 32 [place]: 165 QRS: -2 QRSD: 95 T: 10 QT: 346 QTc: 429 Interpretive Statements Sinus rhythm Left atrial enlargement Left ventricular hypertrophy Anterior ST elevation, probably due to LVH Compared to ECG 11/03/2019 14:19:37 Atrial abnormality now present Left ventricular hypertrophy now present Early repolarization no longer present ST (T wave) deviation still present Electronically Signed On 12-23-2019 13:35:40 CDT by Fahad Menezes [email or web address] <ELECTRONICALLY SIGNED> By: Fahad Menezes MD 12/23/19 1335 1217 1217 Fahad Menezes MD /EPI
[2019-12-23 13:55] LABS: URINE BILIRUBIN NEGATIVE (Negative); URINE BLOOD NEGATIVE (Negative); URINE CLARITY CLEAR; URINE COLOR YELLOW; URINE GLUCOSE-RANDOM* NEGATIVE (Negative); URINE KETONES NEGATIVE (Negative); URINE LEUKOCYTES-REFLEX NEGATIVE (Negative); URINE NITRITE-REFLEX NEGATIVE (Negative); URINE PROTEIN (DIPSTICK) TRACE (Negative); URINE UROBILINOGEN 0.2 E.U./dl (0.2-1.0)
[2019-12-23 14:07] LABS: AMP/METHAMP POSITIVE (Negative); BARBITURATES Negative (Negative); BENZODIAZEPINES Negative (Negative); COCAINE POSITIVE (Negative); METHADONE Negative (Negative); OPIATES Negative (Negative); PCP Negative (Negative)
[2019-12-23 14:07] LABS: ABSOLUTE NEUTROPHILS 3.1 thou/uL (1.4-8.2)
[2019-12-23 14:22] VITALS: BP 143/89
[2019-12-23] MEDS ORDERED: JANTOVEN10 MG PO (14:51)
[2019-12-23 15:58] LABS: PROTIME 10.7 Seconds (9.3-11.4)
[2019-12-23 16:03] LABS: CALCIUM 8.4 mg/dL (8.5-10.1); CREATININE 1.3 mg/dL (0.7-1.3); POTASSIUM 3.1 mmol/L (3.5-5.1); TOTAL BILIRUBIN 0.8 mg/dL (0.2-1.0); TOTAL PROTEIN 7.5 g/dL (6.4-8.2)
[2019-12-24 05:36] LABS: HEMATOCRIT 41.9 % (42.0-52.0); MCH 29.4 pg (26.0-34.0); MCHC 32.8 g/dL (28.0-37.0); MCV 89.7 fL (80.0-100.0); PLATELET COUNT 197 thou/uL (150-400); RBC 4.67 mil/uL (4.50-6.00); RDW 14.7 % (10.5-14.5)
[2019-12-24 05:41] LABS: INR 1.2; PROTIME 12.7 Seconds (9.3-11.4)
[2019-12-24 05:54] LABS: CALCIUM 8.1 mg/dL (8.5-10.1); CREATININE 1.2 mg/dL (0.7-1.3); MAGNESIUM 2.1 mg/dL (1.8-2.4); POTASSIUM 3.6 mmol/L (3.5-5.1)
[2019-12-24 06:01] LABS: HEMOGLOBIN 13.7 gm/dL (14.0-18.0)
[2019-12-24 11:28] LABS: ABSOLUTE NEUTROPHILS 1.7 thou/uL (1.4-8.2); ATYPICAL LYMPHS 2 %
[2019-12-24 13:12] VITALS: BP 146/85
[2019-12-24 13:30] VITALS: BP 117/75
[2019-12-24 16:30] VITALS: BP 133/79
[2019-12-24 19:44] VITALS: BP 133/87
[2019-12-25 00:17] VITALS: BP 121/66
[2019-12-25 04:17] VITALS: BP 119/68
[2019-12-25 07:28] VITALS: BP 101/54
[2019-12-25 08:57] LABS: PROTIME 10.4 Seconds (9.3-11.4)
[2019-12-25 19:14] VITALS: BP 116/53
[2019-12-26 04:09] VITALS: BP 129/71
[2019-12-26 07:20] VITALS: BP 132/49
[2019-12-26 15:40] VITALS: BP 136/61
[2019-12-27 08:45] VITALS: BP 133/100
[2019-12-27 09:50] VITALS: BP 156/78
[2019-12-27 14:31] VITALS: BP 146/75
[2019-12-28 06:58] VITALS: BP 135/55
[2019-12-28 17:45] VITALS: BP 144/63
[2019-12-29] VITALS (7 sets, daily range): BP systolic 94–180; BP diastolic 61–108
[2019-12-30] MEDS ORDERED: SEROQUEL 100 M100 M1 PO (11:52)
[2019-12-30] MEDS ORDERED: TRAZODONE HCL100 MG PO (11:52)
[2019-12-30] MEDS ORDERED: ALPRAZOLAM 0.50.5 M1 PO (11:52)
[2019-12-30 16:07] VITALS: BP 121/76
[2019-12-30 16:42] VITALS: BP 121/76
== END 2019-12-30 16:54 | disposition home or self-care (01) | DRG 917 ==
LOC: ER 11:41 → 2N 14:43 → EROBS 14:43 → 4W 14:43 → 2N 12-24 13:12 → 4W 12-26 09:52
PROVIDERS: Nurse Practitioner; Physician Assistant; ADMIT Internal Medicine; ATTEND Internal Medicine
DX: T45.512A Poisoning by anticoagulants, intentional self-harm, initial encounter (principal); N17.0 Acute kidney failure with tubular necrosis; E87.2 Acidosis; R45.851 Suicidal ideations; K76.6 Portal hypertension; I85.00 Esophageal varices without bleeding; T38.3X2A Poisoning by insulin and oral hypoglycemic [antidiabetic] drugs, intentional self-harm, initial encounter; E87.6 Hypokalemia; F14.10 Cocaine abuse, uncomplicated; F15.10 Other stimulant abuse, uncomplicated; K74.60 Unspecified cirrhosis of liver; I25.10 Atherosclerotic heart disease of native coronary artery without angina pectoris; J44.9 Chronic obstructive pulmonary disease, unspecified; F17.210 Nicotine dependence, cigarettes, uncomplicated; F31.9 Bipolar disorder, unspecified; I10 Essential (primary) hypertension; G89.4 Chronic pain syndrome; R22.1 Localized swelling, mass and lump, neck; E87.8 Other disorders of electrolyte and fluid balance, not elsewhere classified; Z95.5 Presence of coronary angioplasty implant and graft; I25.2 Old myocardial infarction; Z86.718 Personal history of other venous thrombosis and embolism; Z86.711 Personal history of pulmonary embolism; Z99.81 Dependence on supplemental oxygen; Z79.01 Long term (current) use of anticoagulants; Z79.82 Long term (current) use of aspirin; Z79.899 Other long term (current) drug therapy; Z79.84 Long term (current) use of oral hypoglycemic drugs; Z88.1 Allergy status to other antibiotic agents; Z88.5 Allergy status to narcotic agent; Z88.0 Allergy status to penicillin; Z88.2 Allergy status to sulfonamides; Z88.8 Allergy status to other drugs, medicaments and biological substances; Z91.018 Allergy to other foods; Z91.048 Other nonmedicinal substance allergy status; Y92.89 Other specified places as the place of occurrence of the external cause
CPT/HCPCS: 10047; 10081